=== PATIENT | female | born 1970 | race Asian ===

== ENCOUNTER 2017-06-30 19:26 | Emergency (ER) | payer BC ==
[~2017-06-30] VITALS: Ht 165.1 cm; Wt 56.7 kg
== END 2017-06-30 20:20 | disposition home or self-care (01) ==
LOC: ED 19:26
DX: R03.1 Nonspecific low blood-pressure reading (principal); M47.896 Other spondylosis, lumbar region; M25.512 Pain in left shoulder
CPT/HCPCS: 99282